=== PATIENT | female | born 1960 | race Asian ===

== ENCOUNTER → 2016-11-18 | Outpatient (CLI) | payer OTHER ==
[~2016-11-18] MED LIST: ALDACTONE25 MG PO; COREG25 M1 PO; DIOVAN320 MG PO; IRON18 MG PO; JANUVIA25 M1 PO; LIPITOR40 MG PO; METFORMIN HCL500 M1 PO; ULTRAM50 MG PO; VITAMIN D2000 UNI1 PO
== END | disposition home or self-care (01) ==
LOC: CDC 08:54
DX: N63 Unspecified lump in breast (principal)
CPT/HCPCS: 93000

== ENCOUNTER 2016-12-09 07:49 | Day surgery (SDC) | payer OTHER ==
[~2016-12-09] VITALS: Ht 157.5 cm; Wt 76.2 kg
[~2016-12-09 07:49] MED LIST changes: +FISH OIL 1,0001 EAC7 PO; +IRON325 M1 PO; +TRAMADOL HCL50 MG PO
[2016-12-09 08:39] LABS: POINT-OF-CARE METER ID UU13113694
[2016-12-09 08:54] VITALS: BP 110/60
[2016-12-09 08:56] LABS: BASOPHIL COUNT 0.1 K/uL (0-0.1); EOSINOPHIL (%) 14.7 % (0-5); EOSINOPHIL COUNT 1.1 K/uL (0-0.3); HEMATOCRIT 35.5 % (36.0-46.0); IMMATURE GRANULOCYTE (%) 1.3 % (0.0-0.7); IMMATURE GRANULOCYTE COUNT 0.1 K/uL; INSTRUMENT ABS NEUTROPHIL CT 3.7 K/uL; LYMPHOCYTE COUNT 1.9 K/uL (1.0-2.8); MCH 28.4 PG (29.0-34.0); MCHC 32.7 G/DL (30.0-36.0); MEAN PLAT.VOLUME 10.1 uM^3 (9.5-12.4); MONOCYTE (%) 7.7 % (3-12); MONOCYTE COUNT 0.6 K/uL (0-0.8); NEUTROPHIL (%) 49.9 % (45-76); NEUTROPHIL COUNT 3.7 K/uL (1.8-6.4); PLATELET COUNT 288 K/uL (156-360); RBC DIS.WIDTH-CV 13.2 % (11.8-14.6); RBC DIS.WIDTH-SD 42.2 % (39-53); RED BLOOD COUNT 4.08 M/uL (3.80-5.20); WHITE BLOOD COUNT 7.4 K/uL (4.1-10.2)
[2016-12-09 09:08] LABS: ANION GAP 10 MEQ/L (2-14); CHLORIDE 105 MEQ/L (99-109); GFR ESTIMATE (CALCULATED) 45 mL/min/; GLUCOSE 144 mg/dL (70-99); POTASSIUM 4.3 MEQ/L (3.7-5.4); SAMPLE HEMOLYSIS CHECK 0; SAMPLE ICTERIC CHECK 0; SAMPLE LIPEMIA CHECK 0; SODIUM 137 MEQ/L (136-147); UREA NITROGEN (BUN) 24 mg/dL (9-23)
[2016-12-09] MEDS ORDERED: NORCO 5/3251 TABLET PO (12:04)
[2016-12-09 12:35] LABS: POINT-OF-CARE METER ID UU13113675
[2016-12-09 12:51] VITALS: BP 126/59
[2016-12-09 13:55] VITALS: BP 126/62
== END 2016-12-09 14:25 | disposition home or self-care (01) ==
LOC: SDC 07:49
PROVIDERS: Surgery
PROC: 0HBT0ZX Excision of Right Breast, Open Approach, Diagnostic (ICD-10-PCS; principal; 2016-12-09)
DX: D24.1 Benign neoplasm of right breast (principal); C55 Malignant neoplasm of uterus, part unspecified; Z80.3 Family history of malignant neoplasm of breast; E11.65 Type 2 diabetes mellitus with hyperglycemia; I10 Essential (primary) hypertension; E78.5 Hyperlipidemia, unspecified; K21.9 Gastro-esophageal reflux disease without esophagitis; E66.9 Obesity, unspecified; Z68.30 Body mass index [BMI] 30.0-30.9, adult; Z88.8 Allergy status to other drugs, medicaments and biological substances
CPT/HCPCS: 80048; 82948; 85025; 88305; J0330; J0690; J1100; J2250; J2405; J2710; J3010